=== PATIENT | male | born 1990 | race Caucasian/White ===

== ENCOUNTER 2022-07-15 11:46 | Emergency (ER) | payer OTHER ==
[~2022-07-15] VITALS: Ht 165.1 cm; Wt 78.4 kg
[2022-07-15 13:15] VITALS: BP 135/99
[2022-07-15] MEDS ORDERED: TRAM-297 PO (13:57)
[2022-07-15] MEDS ORDERED: KETOROLAC TROMETH 60MG/2ML VIAL IM ONE (14:00)
== END 2022-07-15 14:00 | disposition home or self-care (01) ==
LOC: ER 11:46
DX: S83.91XA Sprain of unspecified site of right knee, initial encounter (principal); X50.1XXA Overexertion from prolonged static or awkward postures, initial encounter; Y93.89 Activity, other specified; Y92.89 Other specified places as the place of occurrence of the external cause; Y99.8 Other external cause status
CPT/HCPCS: 73562; 96372; 99283; J1885

== ENCOUNTER 2022-10-21 14:00 | Emergency (ER) | payer OTHER ==
[~2022-10-21] VITALS: Ht 165.1 cm; Wt 79.3 kg
[~2022-10-21 14:00] MED LIST: ALBU108A5 IN; AZITTAB PO; MONT-8 PO; PROM1SOL4 PO; TRAM-297 PO
[2022-10-21 14:45] VITALS: BP 136/111
[2022-10-21] MEDS ORDERED: LIDOCAINE 1% HCL (LOCAL ANESTH.) INJ 20ML MDV IJ ONE (15:00)
== END 2022-10-21 15:17 | disposition home or self-care (01) ==
LOC: ER 14:00
DX: S61.011A Laceration without foreign body of right thumb without damage to nail, initial encounter (principal); Z79.2 Long term (current) use of antibiotics; Z79.899 Other long term (current) drug therapy; W26.8XXA Contact with other sharp object(s), not elsewhere classified, initial encounter; Y93.89 Activity, other specified; Y92.89 Other specified places as the place of occurrence of the external cause; Y99.8 Other external cause status
CPT/HCPCS: 12002; 99282; J2001

== ENCOUNTER 2022-11-08 20:24 | Emergency (ER) | payer OTHER ==
[~2022-11-08] VITALS: Ht 165.1 cm; Wt 80.9 kg
[2022-11-08 21:50] LABS: Basophils # (auto) 0 10 ^3/uL (0-0.2); Basophils % (auto) 0.4 % (0.0-2.0); Eosinophils # (auto) 0.7 10 ^3/uL (0-0.8); Hematocrit 43.6 % (41.0-53.0); Hemoglobin 15.1 g/dL (13.5-17.5); Lymphocytes # (auto) 2.4 10 ^3/uL (0.4-5.4); Mean Corpuscular Hemoglobin 32.4 pg (28.0-32.0); Mean Corpuscular Hgb Conc. 34.7 g/dL (32.0-36.0); Mean Corpuscular Volume 93.5 fL (80.0-100.0); Monocytes # (auto) 0.7 10 ^3/uL (0-1.3); Monocytes % (auto) 6.9 % (0.0-12.0); Neutrophils # (auto) 6.2 10 ^3/uL (1.6-8.6); Neutrophils % (auto) 61.7 % (37.0-80.0); Nucleated Red Blood Cells % 0.2 %; Red Blood Cells 4.67 10^6/uL (4.5-5.90); Red Cell Distribution Width 12.6 % (11.8-14.3)
[2022-11-08 22:04] LABS: Albumin 3.6 g/dL (3.4-5.0); BUN/Creatinine Ratio 14.6; Calcium 8.9 mg/dL (8.5-10.1); Potassium 3.7 mmol/L (3.5-5.1)
[2022-11-08 22:07] LABS: Bilirubin, Total 0.4 mg/dL (0.2-1.0); Total Protein 7.1 g/dL (6.4-8.2)
[2022-11-08 22:20] LABS: INR 0.87 (0.9-1.15); Partial Thromboplastin Time 28.4 sec (24.6-33.4)
[2022-11-09] MEDS ORDERED: OXYC-963 PO (01:29)
[2022-11-09] MEDS ORDERED: DIA5T PO (01:29)
[2022-11-09] MEDS ORDERED: DexAMETHasone SOD PHOS 10MG/1ML VIAL INJ IM ONE (01:30)
[2022-11-09 01:55] VITALS: BP 121/74
[2022-11-10] MEDS ORDERED: DIAZ5TAB PO (07:18)
[2022-11-10] MEDS ORDERED: HYDR-4798 PO (07:22)
== END 2022-11-09 01:55 | disposition home or self-care (01) ==
LOC: ER 20:24
DX: S86.911A Strain of unspecified muscle(s) and tendon(s) at lower leg level, right leg, initial encounter (principal); Z86.718 Personal history of other venous thrombosis and embolism; Z79.2 Long term (current) use of antibiotics; Z79.899 Other long term (current) drug therapy; X58.XXXA Exposure to other specified factors, initial encounter; Y93.89 Activity, other specified; Y92.89 Other specified places as the place of occurrence of the external cause; Y99.8 Other external cause status
CPT/HCPCS: 36415; 80053; 85025; 85379; 85610; 85730; 93971; 96372; 99284; J1100

== ENCOUNTER 2022-11-23 20:32 | Inpatient (IN) | payer OTHER ==
[~2022-11-23] VITALS: Ht 165.1 cm; Wt 86.1 kg
[~2022-11-23 20:32] MED LIST changes: +DIA5T PO; +DIAZ5TAB PO; +HYDR-4798 PO; +OXYC-963 PO
[2022-11-23] MEDS ORDERED: HYDROcodone-ACET 10/325MG TAB PO ONE (21:45)
[2022-11-23 22:02] LABS: Basophils # (auto) 0.1 10 ^3/uL (0-0.2); Basophils % (auto) 0.5 % (0.0-2.0); Eosinophils # (auto) 0.6 10 ^3/uL (0-0.8); Hematocrit 41.9 % (41.0-53.0); Hemoglobin 14.8 g/dL (13.5-17.5); Lymphocytes # (auto) 2.5 10 ^3/uL (0.4-5.4); Lymphocytes % (auto) 22.9 % (10.0-50.0); Mean Corpuscular Hemoglobin 32.7 pg (28.0-32.0); Mean Corpuscular Hgb Conc. 35.4 g/dL (32.0-36.0); Mean Corpuscular Volume 92.3 fL (80.0-100.0); Monocytes # (auto) 0.7 10 ^3/uL (0-1.3); Monocytes % (auto) 6.6 % (0.0-12.0); Neutrophils # (auto) 7.2 10 ^3/uL (1.6-8.6); Nucleated Red Blood Cells % 0.2 %; Red Blood Cells 4.54 10^6/uL (4.5-5.90); White Blood Cell 11.1 10^3/uL (4.4-10.8)
[2022-11-23 22:19] LABS: Albumin 3.7 g/dL (3.4-5.0); Calcium 8.7 mg/dL (8.5-10.1); Potassium 3.4 mmol/L (3.5-5.1)
[2022-11-23 22:22] LABS: BUN/Creatinine Ratio 11.8; Bilirubin, Total 0.3 mg/dL (0.2-1.0); Total Protein 7.4 g/dL (6.4-8.2)
[2022-11-23 23:16] LABS: Urine Bacteria NONE SEEN /hpf (None Seen); Urine Blood 2+ /uL (Negative); Urine Specific Gravity 1.006 (1.001-1.035); Urine WBC <1 /hpf (0 - 3)
[2022-11-24] MEDS ORDERED: DOCUSATE SOD 100 MG CAP PO PRN ×2 (01:00→10:45)
[2022-11-24] MEDS ORDERED: ACETAMINOPHEN 325 MG TAB PO PRN (01:00)
[2022-11-24] MEDS ORDERED: ONDANSETRON HCL 4 MG/2 ML VIAL IV PRN (01:00)
[2022-11-24] MEDS ORDERED: MORPHINE SULFATE INJ 2 MG/ml SYRG IV PRN (01:00)
[2022-11-24] MEDS ORDERED: HYDROcodone-ACET 5/325MG TAB PO PRN (01:00)
[2022-11-24] MEDS ORDERED: NITROGLYCERIN 0.4 MG SL TAB SL PRN (01:00)
[2022-11-24] MEDS: MORPHINE SULFATE INJ 2 MG/ml SYRG IV PRN ×2 (01:15→05:23)
[2022-11-24] MEDS ORDERED: KETOROLAC TROMETH 30 MG/ML 1ML VIAL IV ONE (01:15)
[2022-11-24 04:10] VITALS: BP 119/87
[2022-11-24 05:00] VITALS: BP 119/87
[2022-11-24] MEDS: SODIUM CHLOR 0.9% PF (SALINE LOCK) 10ML VIAL/SYR IV SCH ×3 (06:26→21:10)
[2022-11-24] MEDS ORDERED: KETOROLAC TROMETH 30 MG/ML 1ML VIAL IV PRN (06:45)
[2022-11-24] MEDS ORDERED: HYDROcodone-ACET 10/325MG TAB PO PRN (06:45)
[2022-11-24] MEDS ORDERED: POTASSIUM CHL 20 Meq TABLET PO ONE (07:45)
[2022-11-24 08:34] LABS: Basophils # (auto) 0.1 10 ^3/uL (0-0.2); Basophils % (auto) 0.6 % (0.0-2.0); Eosinophils # (auto) 0.6 10 ^3/uL (0-0.8); Eosinophils % (auto) 6.6 % (0.0-7.0); Hematocrit 43.9 % (41.0-53.0); Hemoglobin 15.2 g/dL (13.5-17.5); Lymphocytes # (auto) 2.8 10 ^3/uL (0.4-5.4); Lymphocytes % (auto) 28.4 % (10.0-50.0); Mean Corpuscular Hemoglobin 32.4 pg (28.0-32.0); Mean Corpuscular Hgb Conc. 34.6 g/dL (32.0-36.0); Mean Corpuscular Volume 93.4 fL (80.0-100.0); Monocytes # (auto) 0.6 10 ^3/uL (0-1.3); Monocytes % (auto) 6.2 % (0.0-12.0); Neutrophils # (auto) 5.7 10 ^3/uL (1.6-8.6); Neutrophils % (auto) 58.2 % (37.0-80.0); Red Cell Distribution Width 12.9 % (11.8-14.3); White Blood Cell 9.8 10^3/uL (4.4-10.8)
[2022-11-24 09:00] VITALS: BP 126/86
[2022-11-24] MEDS: ENOXAPARIN SOD 40 MG/0.4 ML SYRINGE SC SCH (09:49)
[2022-11-24] MEDS ORDERED: GABAPENTIN 300 MG CAP PO SCH (10:00)
[2022-11-24] MEDS ORDERED: DOCUSATE SOD 100 MG CAP PO ONE (11:00)
[2022-11-24 11:03] LABS: Albumin 3.7 g/dL (3.4-5.0); Calcium 9.2 mg/dL (8.5-10.1); Potassium 4.4 mmol/L (3.5-5.1)
[2022-11-24 11:07] LABS: Bilirubin, Total 0.5 mg/dL (0.2-1.0); Total Protein 7.8 g/dL (6.4-8.2)
[2022-11-24] MEDS: HYDROmorphone HCL 2 MG/ML VL/or syr IV PRN ×3 (12:30→21:09)
[2022-11-24 12:54] VITALS: BP 127/88
[2022-11-24] MEDS: HYDROcodone-ACET 10/325MG TAB PO PRN ×2 (15:30→22:33)
[2022-11-24 16:49] VITALS: BP 131/97
[2022-11-24] MEDS: GABAPENTIN 300 MG CAP PO SCH (21:08)
[2022-11-24] MEDS: DOCUSATE SOD 100 MG CAP PO SCH (21:08)
[2022-11-24 22:00] VITALS: BP 134/91
[2022-11-25] MEDS: HYDROmorphone HCL 2 MG/ML VL/or syr IV PRN ×5 (00:55→21:18)
[2022-11-25 05:00] VITALS: BP 110/77
[2022-11-25 05:17] LABS: Basophils # (auto) 0 10 ^3/uL (0-0.2); Basophils % (auto) 0.4 % (0.0-2.0); Eosinophils % (auto) 12.6 % (0.0-7.0); Hematocrit 39.8 % (41.0-53.0); Hemoglobin 14.1 g/dL (13.5-17.5); Lymphocytes # (auto) 2.3 10 ^3/uL (0.4-5.4); Lymphocytes % (auto) 27.7 % (10.0-50.0); Mean Corpuscular Hgb Conc. 35.4 g/dL (32.0-36.0); Mean Corpuscular Volume 93.3 fL (80.0-100.0); Monocytes # (auto) 0.6 10 ^3/uL (0-1.3); Monocytes % (auto) 6.6 % (0.0-12.0); Neutrophils # (auto) 4.4 10 ^3/uL (1.6-8.6); Neutrophils % (auto) 52.7 % (37.0-80.0); Nucleated Red Blood Cells % 0.2 %; Red Blood Cells 4.27 10^6/uL (4.5-5.90); Red Cell Distribution Width 12.8 % (11.8-14.3); White Blood Cell 8.3 10^3/uL (4.4-10.8)
[2022-11-25 05:34] LABS: Albumin 3.3 g/dL (3.4-5.0); Calcium 8.8 mg/dL (8.5-10.1); Potassium 4.2 mmol/L (3.5-5.1)
[2022-11-25 05:39] LABS: BUN/Creatinine Ratio 16.2; Bilirubin, Total 0.3 mg/dL (0.2-1.0); Total Protein 6.3 g/dL (6.4-8.2)
[2022-11-25] MEDS: SODIUM CHLOR 0.9% PF (SALINE LOCK) 10ML VIAL/SYR IV SCH ×3 (05:52→21:17)
[2022-11-25] MEDS: HYDROcodone-ACET 10/325MG TAB PO PRN ×2 (06:58→13:03)
[2022-11-25 08:30] VITALS: BP 120/83
[2022-11-25 09:00] VITALS: BP 120/83
[2022-11-25] MEDS: DOCUSATE SOD 100 MG CAP PO SCH ×2 (09:59→21:17)
[2022-11-25] MEDS: GABAPENTIN 300 MG CAP PO SCH ×2 (09:59→21:16)
[2022-11-25] MEDS: ENOXAPARIN SOD 40 MG/0.4 ML SYRINGE SC SCH (10:00)
[2022-11-25 13:00] VITALS: BP 118/84
[2022-11-25] MEDS ORDERED: ZOLPIDEM TARTRATE 5 MG TAB PO PRN (15:30)
[2022-11-25 17:00] VITALS: BP 130/89
[2022-11-25] MEDS: OXYCODONE W/ ACETAMINOPHEN 5/325MG TABLET PO PRN (18:07)
[2022-11-25 22:00] VITALS: BP 139/98
[2022-11-26] MEDS: OXYCODONE W/ ACETAMINOPHEN 5/325MG TABLET PO PRN ×3 (00:10→16:15)
[2022-11-26 05:00] VITALS: BP 126/75
[2022-11-26] MEDS: SODIUM CHLOR 0.9% PF (SALINE LOCK) 10ML VIAL/SYR IV SCH ×3 (05:26→23:06)
[2022-11-26 09:00] VITALS: BP 111/66
[2022-11-26] MEDS: GABAPENTIN 300 MG CAP PO SCH ×2 (09:50→23:06)
[2022-11-26] MEDS: DOCUSATE SOD 100 MG CAP PO SCH ×2 (09:50→23:06)
[2022-11-26] MEDS: ENOXAPARIN SOD 40 MG/0.4 ML SYRINGE SC SCH (09:50)
[2022-11-26] MEDS: HYDROmorphone HCL 2 MG/ML VL/or syr IV PRN ×3 (12:52→23:15)
[2022-11-26 13:00] VITALS: BP 117/89
[2022-11-26] MEDS ORDERED: NAPROXEN 500 MG TAB PO PRN (16:00)
[2022-11-26 17:00] VITALS: BP 139/91
[2022-11-26 22:00] VITALS: BP 131/82
[2022-11-27] MEDS: OXYCODONE W/ ACETAMINOPHEN 5/325MG TABLET PO PRN ×2 (05:35→12:41)
[2022-11-27] MEDS: SODIUM CHLOR 0.9% PF (SALINE LOCK) 10ML VIAL/SYR IV SCH ×2 (05:45→14:00)
[2022-11-27 09:10] VITALS: BP 116/75
[2022-11-27] MEDS: DOCUSATE SOD 100 MG CAP PO SCH (09:42)
[2022-11-27] MEDS: GABAPENTIN 300 MG CAP PO SCH (09:42)
[2022-11-27] MEDS: ENOXAPARIN SOD 40 MG/0.4 ML SYRINGE SC SCH (09:42)
[2022-11-27 13:10] VITALS: BP 136/98
[2022-11-27] MEDS ORDERED: PERCOT PO ×3 (13:11→14:11)
[2022-11-27] MEDS ORDERED: GABA300C10 PO ×3 (13:11→14:11)
[2022-11-27] MEDS ORDERED: DOCU100C10 PO ×3 (13:11→14:11)
== END 2022-11-27 16:08 | disposition home or self-care (01) | DRG 74 ==
LOC: ER 20:32 → OVERFLOW 11-24 01:03 → CENTRAL 11-24 03:18
PROVIDERS: ADMIT Nurse Practitioner Family; ATTEND Internal Medicine
DX: G62.9 Polyneuropathy, unspecified (principal); G89.18 Other acute postprocedural pain; M25.461 Effusion, right knee; D72.829 Elevated white blood cell count, unspecified; E87.6 Hypokalemia; R00.0 Tachycardia, unspecified; R79.89 Other specified abnormal findings of blood chemistry; Z20.822 Contact with and (suspected) exposure to COVID-19
CPT/HCPCS: 36415; 71275; 73706; 73721; 80053; 81001; 83605; 83880; 84484; 85025; 87426; 93005; 93971; 96374; 97110; 97116; 97163; 97530; G0378; J1885; J2405

== ENCOUNTER 2023-06-07 12:26 | Emergency (ER) | payer OTHER ==
[~2023-06-07] VITALS: Ht 165.1 cm; Wt 75.2 kg
[~2023-06-07 12:26] MED LIST changes: +DIAZ-681 PO; -DIAZ5TAB PO; +DOCU-265 PO; +GABA-1250 PO; +PERCOT PO
[2023-06-07 13:43] VITALS: BP 135/92; PULSE 101; RESP 16; TEMP 98.5; O2SAT 95
[2023-06-07] MEDS ORDERED: KETOROLAC TROMETH 60MG/2ML VIAL IM ONE (14:30)
== END 2023-06-07 14:59 | disposition home or self-care (01) ==
LOC: ER 12:26
DX: S86.811A Strain of other muscle(s) and tendon(s) at lower leg level, right leg, initial encounter (principal); S80.01XA Contusion of right knee, initial encounter; Z98.890 Other specified postprocedural states; Z79.1 Long term (current) use of non-steroidal anti-inflammatories (NSAID); Z79.899 Other long term (current) drug therapy; V43.92XA Unspecified car occupant injured in collision with other type car in traffic accident, initial encounter; Y93.89 Activity, other specified; Y92.89 Other specified places as the place of occurrence of the external cause; Y99.8 Other external cause status
CPT/HCPCS: 73562; 73590; 96372; 99284; J1885

== ENCOUNTER 2023-07-17 17:12 | Emergency (ER) | payer OTHER ==
[~2023-07-17] VITALS: Ht 165.1 cm; Wt 80.4 kg
[2023-07-17 17:29] LABS: Basophils # (auto) 0.1 10 ^3/uL (0-0.2); Basophils % (auto) 0.2 % (0.0-2.0); Eosinophils # (auto) 0 10 ^3/uL (0-0.8); Hematocrit 48.3 % (41.0-53.0); Hemoglobin 16.5 g/dL (13.5-17.5); Lymphocytes # (auto) 3.1 10 ^3/uL (0.4-5.4); Lymphocytes % (auto) 13.3 % (10.0-50.0); Mean Corpuscular Hemoglobin 32.2 pg (28.0-32.0); Mean Corpuscular Hgb Conc. 34.2 g/dL (32.0-36.0); Mean Corpuscular Volume 94.1 fL (80.0-100.0); Monocytes # (auto) 1.2 10 ^3/uL (0-1.3); Neutrophils # (auto) 18.9 10 ^3/uL (1.6-8.6); Neutrophils % (auto) 81.5 % (37.0-80.0); Nucleated Red Blood Cells % 0.1 %; Red Blood Cells 5.13 10^6/uL (4.5-5.90); Red Cell Distribution Width 12.4 % (11.8-14.3); White Blood Cell 23.2 10^3/uL (4.4-10.8)
[2023-07-17 17:43] LABS: Alanine Aminotransferase 48 U/L (7-40); Albumin 5.1 g/dL (3.2-4.8); Alkaline Phosphatase 98 U/L (46-116); Anion Gap 11 (5-15); Aspartate Aminotransferase 26 U/L (13-40); BUN/Creatinine Ratio 8.2 (10.0-20.0); Blood Urea Nitrogen 9 mg/dL (9-23); Calcium 10.7 mg/dL (8.7-10.4); Carbon Dioxide 24 mmol/L (20-30); Chloride 106 mmol/L (98-107); Glucose 127 mg/dL (74-106); Potassium 3.8 mmol/L (3.5-5.1); Sodium 141 mmol/L (136-145)
[2023-07-17 17:44] LABS: Bilirubin, Total 0.4 mg/dL (0.2-1.0); Total Protein 8.2 g/dL (5.7-8.2)
[2023-07-17 18:13] LABS: Urine Bacteria NONE SEEN /hpf (None Seen); Urine Blood Negative /uL (Negative); Urine Clarity Clear (Clear); Urine Color Yellow (Yellow); Urine Hyaline Cast FEW /lpf (0 - 2); Urine Mucus FEW (None Seen); Urine Protein, UAD TRACE (Negative); Urine Specific Gravity 1.018 (1.001-1.035); Urine Urobilinogen Normal (Negative); Urine WBC 4 /hpf (0 - 3)
[2023-07-17 18:27] LABS: Amphetamine Screen, Urine Neg (NEGATIVE); Barbiturate Scree,Urine Neg (NEGATIVE); Benzodiazephine Screen, Urine Pos (NEGATIVE); Cannabinoid Screen, Urine Neg (NEGATIVE); Cocaine Screen, Urine Neg (NEGATIVE); Opiate Scree,Urine Neg (NEGATIVE); Phencyclidine Screen, Urine Neg (NEGATIVE)
[2023-07-17] MEDS ORDERED: SODIUM CHLORIDE 0.9% 1,000 ML IV ONE (18:30)
[2023-07-17] MEDS ORDERED: diphenhdrAMINE HCL 50 MG/1 ML VL IV ONE (18:30)
[2023-07-17 21:30] VITALS: BP 149/79; PULSE 97; RESP 22; O2SAT 100
== END 2023-07-17 21:34 | disposition home or self-care (01) ==
LOC: ER 17:12
DX: T78.1XXA Other adverse food reactions, not elsewhere classified, initial encounter (principal); R00.2 Palpitations; R42 Dizziness and giddiness; Z98.890 Other specified postprocedural states; Z87.891 Personal history of nicotine dependence; Z79.1 Long term (current) use of non-steroidal anti-inflammatories (NSAID); Z79.899 Other long term (current) drug therapy; X58.XXXA Exposure to other specified factors, initial encounter
CPT/HCPCS: 36415; 71046; 80053; 80307; 81001; 83880; 84484; 85025; 93005; 96361; 96374; 99285; J1200; J7030

== ENCOUNTER 2023-10-24 04:20 | Emergency (ER) | payer OTHER ==
[~2023-10-24] VITALS: Ht 165.1 cm; Wt 79.5 kg
[2023-10-24] MEDS ORDERED: ACETAMINOPHEN 325 MG TAB PO ONE ×2 (05:13→05:15)
[2023-10-24] MEDS ORDERED: IBUP-1456 PO (05:30)
[2023-10-24] MEDS ORDERED: PRED20TA2 PO (05:30)
[2023-10-24] MEDS ORDERED: cefTRIAXone SOD 1,000 MG VL IM ONE (05:30)
[2023-10-24] MEDS ORDERED: AMOX875T4 PO (05:30)
[2023-10-24] MEDS ORDERED: methylPREDNISolone SOD SUCC 125 MG/2 ML VL IM ONE (05:30)
[2023-10-24 06:51] VITALS: BP 135/80; PULSE 98; RESP 20; TEMP 100.2
[2023-10-24 06:57] VITALS: O2SAT 94
== END 2023-10-24 07:01 | disposition home or self-care (01) ==
LOC: ER 04:20
DX: J03.90 Acute tonsillitis, unspecified (principal); Z79.1 Long term (current) use of non-steroidal anti-inflammatories (NSAID); Z79.2 Long term (current) use of antibiotics; Z79.899 Other long term (current) drug therapy
CPT/HCPCS: 96372; 99284; J0696; J2930

== ENCOUNTER 2023-11-16 09:22 | Emergency (ER) | payer OTHER ==
[~2023-11-16] VITALS: Ht 165.1 cm; Wt 79.7 kg
[~2023-11-16 09:22] MED LIST changes: +AMOX875T4 PO; +IBUP-1456 PO; +PRED20TA2 PO
[2023-11-16] MEDS: ALBUTEROL SULF 2.5 MG/0.5ML(0.5%) NEB SOLN NEB ONE (10:49)
[2023-11-16] MEDS: IPRATROPIUM BROM 0.5 MG/2.5ML INH SOL NEB ONE (10:50)
[2023-11-16 10:51] LABS: Basophils # (auto) 0.1 10 ^3/uL (0-0.2); Basophils % (auto) 0.4 % (0.0-2.0); Eosinophils # (auto) 0.1 10 ^3/uL (0-0.8); Eosinophils % (auto) 0.7 % (0.0-7.0); Hematocrit 42.7 % (41.0-53.0); Hemoglobin 14.8 g/dL (13.5-17.5); Lymphocytes # (auto) 1.2 10 ^3/uL (0.4-5.4); Lymphocytes % (auto) 7.8 % (10.0-50.0); Mean Corpuscular Hemoglobin 32.9 pg (28.0-32.0); Mean Corpuscular Hgb Conc. 34.7 g/dL (32.0-36.0); Mean Corpuscular Volume 94.8 fL (80.0-100.0); Monocytes # (auto) 0.9 10 ^3/uL (0-1.3); Monocytes % (auto) 6.2 % (0.0-12.0); Neutrophils # (auto) 12.7 10 ^3/uL (1.6-8.6); Neutrophils % (auto) 84.9 % (37.0-80.0); Red Cell Distribution Width 12.3 % (11.8-14.3)
[2023-11-16 11:04] LABS: INR 1.02 (0.9-1.15); Prothrombin Time 10.7 sec (9.3-11.8)
[2023-11-16 11:08] LABS: Chloride 104 mmol/L (98-107); Potassium 3.8 mmol/L (3.5-5.1); Sodium 137 mmol/L (136-145)
[2023-11-16 11:09] LABS: Anion Gap 8 (5-15); Calcium 9.1 mg/dL (8.5-10.1); Carbon Dioxide 25 mmol/L (20-30)
[2023-11-16 11:14] LABS: BUN/Creatinine Ratio 11.5 (10.0-20.0); Blood Urea Nitrogen 11 mg/dL (9-23); Glucose 86 mg/dL (74-106)
[2023-11-16] MEDS: SODIUM CHLORIDE 0.9% 2,400 ML IV ONE (12:32)
[2023-11-16 12:39] LABS: Rapid Strep A Screen-Throat Positive
[2023-11-16 12:52] LABS: COVID19 ANTIGEN SOFIA FIA NEGATIVE (NEGATIVE)
[2023-11-16 13:20] LABS: Rapid Influenza A Negative (Negative); Rapid Influenza B Negative (Negative)
[2023-11-16] MEDS ORDERED: METH4PAK PO (13:25)
[2023-11-16] MEDS ORDERED: ACET500T58 PO (13:26)
[2023-11-16] MEDS: DexAMETHasone SOD PHOS 10MG/1ML VIAL INJ IM ONE (14:15)
[2023-11-16] MEDS: PENICILLIN G BENZ 1,200,000 UNITS/2 ML SYRG IM ONE (14:15)
[2023-11-16 14:45] VITALS: BP 127/87; PULSE 100; RESP 16; TEMP 99.3; O2SAT 98
== END 2023-11-16 14:45 | disposition home or self-care (01) ==
LOC: ER 09:22
DX: J02.0 Streptococcal pharyngitis (principal); R07.89 Other chest pain; M54.2 Cervicalgia; Z20.822 Contact with and (suspected) exposure to COVID-19
CPT/HCPCS: 36415; 36600; 70490; 71045; 80048; 82805; 83605; 84484; 85025; 85379; 85610; 87040; 87426; 87804; 87880; 93005; 96360; 96361; 96372; 99285; J0561; J1100; J7030; J7040; J7644

== ENCOUNTER 2025-07-29 12:32 | Emergency (ER) | payer OTHER ==
[~2025-07-29] VITALS: Ht 165.1 cm; Wt 75.6 kg
[~2025-07-29 12:32] MED LIST changes: +ACET500T58 PO; +METH4PAK PO
[2025-07-29] MEDS ORDERED: IBUP-1456 PO (14:15)
[2025-07-29] MEDS ORDERED: CLIN1CAP70 PO (14:15)
--- NOTE | 2025-07-29 14:17 | ED.PDOC ---
Eye-HPI HPI Comments A 35 YEAR OLD MALE PRESENTS TO THE ED WITH COMPLAINT OF TOOTH PAIN. PT STATES HE HAS BEEN HAVING R SIDED TOOTH PAIN FOR THE PAST 2X DAYS. PT STATES HE WENT TO [facility] TODAY AND WAS TOLD TO COME TO THE ED FOR ANTIBIOTICS. PATIENT DENIES FEVER, CHILLS, SHORTNESS OF BREATH, CHEST PAIN, ABDOMINAL PAIN, NAUSEA, VOMITING, HEADACHE, OR OTHER COMPLAINTS. NO OTHER SYMPTOMS OR MODIFYING FACTORS AT THIS TIME. PATIENT IS ALERT, ORIENTED X 4, AND HAS STEADY GAIT. Chief Complaint: Tooth Pain Time Seen by MD: 14:14 Primary Care Provider: [place] Reviewed Notes: Medications, Allergies Allergies: Coded Allergies: No Known Drug Allergy (Verified Allergy, Unknown, 07/15/22) Home Meds Active Scripts Ibuprofen (Ibuprofen) 800 Mg Tab, 1 TAB PO TID, #30 TAB Prov:CASH HURTADO 07/29/25 Clindamycin Hcl (Clindamycin Hcl) 300 Mg Cap, 1 CAP PO TID, #30 CAP Prov:CASH HURTADO 07/29/25 Acetaminophen (Acetaminophen) 500 Mg Tab, 1000 MG PO Q6HP PRN for 5 Days, #40 TAB Prov:KALYANI SPIVEY MD 11/16/23 Methylprednisolone (Medrol Dosepak) 4 Mg Roosevelt, 4 MG PO UD PRN, #21 TAB UAD Prov:KALYANI SPIVEY MD 11/16/23 Ibuprofen (Ibuprofen) 800 Mg Tab, 1 TAB PO TID PRN, #30 TAB 0 Refills Prov:SARAH BURTON 10/24/23 Prednisone (Prednisone) 20 Mg Tab, 20 MG PO BID for 5 Days, #10 TAB 0 Refills Prov:SARAH BURTON 10/24/23 Amoxicillin & Pot Clavulanate (Amoxicillin/Potassium Cla) 875 Mg Tab, 1 TAB PO BID for 7 Days, #14 TAB 0 Refills Prov:SARAH BURTON 10/24/23 Oxycodone W/ Acetaminophen (Percocet 5/325MG) 1 Tab Tb, 1 TAB PO TID PRN for 15 Days, #45 TAB Prov:ENRIKE DIAZ MD 11/27/22 Docusate Sodium (Docusate Sodium) 100 Mg Cap, 100 MG PO BID for 30 Days, #60 CAP 2 Refills Prov:ENRIKE DIAZ MD 11/27/22 Gabapentin (Gabapentin) 300 Mg Cap, 300 MG PO BID for 30 Days, #60 CAP 2 Refills Prov:ENRIKE DIAZ MD 11/27/22 Hydrocodone-Acetaminophen (Hydrocodone Bitartrate/AC 10-325 mg) 1 Tab Tab, 1 TAB PO BID for 7 Days, #14 TAB Prov:HALLEY OLIVEIRA MD 11/10/22 Diazepam (Valium) 5 Mg Tab, 5 MG PO DAILY for 14 Days, #14 TAB Prov:HALLEY OLIVEIRA MD 11/10/22 Oxycodone W/ Acetaminophen (Oxycodone/Acetaminophen 10-300 mg) 1 Tab Tab, 1 TAB PO BID for 7 Days, #14 TAB Prov:HALLEY OLIVEIRA MD 11/09/22 Diazepam (VALIUM TABLET) 5 Mg Tb, 1 TAB PO BID for 7 Days, #14 TAB Prov:HALLEY OLIVEIRA MD 11/09/22 Azithromycin (Zithromax Z-Roosevelt) 250 Mg Tab, 250 MG PO DAILY for 5 Days, #6 TAB Prov:WARREN ROMERO 09/13/22 Montelukast Sodium (MONTELUKAST SODIUM) 10 Mg Tab, 1 TAB PO DAILY, #30 TAB 5 Refills Prov:WARREN ROMERO 09/13/22 Promethazine-Dm (Promethazine Dm 6.25-15 mg/5Ml) 1 Delores Delores, 5 ML PO TID PRN, #240 ML Prov:WARREN ROMERO 09/13/22 Albuterol Sulfate (Albuterol Sulfate Hfa) 108 Mcg/Act Aer, 108 MCG IN QID, #1 AER Prov:WARREN ROMERO 09/13/22 Tramadol Hcl (Ultram) 50 Mg Tab, 50 MG PO TID, #24 TAB Prov:CASH HURTADO 07/15/22 Information Source: Patient Mode of Arrival: Ambulatory Brought in by: SELF Timing: Days Duration: Since onset Quality: Pain, Red Lids: Normal Conjunctiva: Normal Cornea: Normal Pupils: Normal EOM: Normal Fundus: Normal Slit lamp exam: Normal Anterior chamber: Normal Mouth Location: Right, Lower, Tooth/Teeth, Gums Mouth: Right, Lower, Premolar, Molar, Tender, Carious, Normal ENT Ear Exam: Normal Nose: Normal Sinuses: Normal Onset: Spontaneous Throat Exposed to: None History of: None Last Tetanus: UTD Associated signs and symptoms: Tooth Pain Past Medical History PAST MEDICAL HISTORY: Denies Surgical History: Denies all surgeries Family History Family History: Reviewed,noncontributory to illness, Unknown Social History Smoker: Non-Smoker Alcohol: Occasionally Drugs: Denies Drug Use Lives In: Home Constitutional: denies: chills, diaphoresis, fatigue, fever, malaise, sweats, weakness, others EENTM: reports: mouth pain (RIGHT LOWER TOOTH PAIN ), others (TOOTH PAIN); denies: blurred vision, double vision, ear bleeding, ear discharge, ear drainage, ear pain, ear ringing, eye pain, eye redness, hearing loss, mouth swelling, nasal discharge, nose bleeding, nose congestion, nose pain, photophobia, tearing, throat pain, throat swelling, voice changes Respiratory: denies: cough, hemoptysis, orthopnea, SOB at rest, shortness of breath, SOB with excertion, stridor, wheezing, others Cardiovascular: denies: chest pain, dizzy spells, diaphoresis, Dyspnea on exertion, edema, irregular heart beat, left arm pain, lightheadedness, palpitations, PND, syncope, others Gastrointestinal: denies: abdomen distended, abdominal pain, blood streaked bowels, constipated, diarrhea, dysphagia, difficulty swallowing, hematemesis, melena, nausea, poor appetite, poor fluid intake, rectal bleeding, rectal pain, vomiting, others Genitourinary: denies: burning, dysuria, flank pain, frequency, hematuria, incontinence, penile discharge, penile sore, pain, testicle pain, testicle swelling, urgency, others Neurological: denies: dizziness, fainting, headache, left sided numbness, left sided weakness, numbness, paresthesia, pre-existing deficit, right sided numbne ss, right sided weakness, seizure, speech problems, tingling, tremors, weakness, others Musculoskeletal: denies: back pain, gout, joint pain, joint swelling, muscle pain, muscle stiffness, neck pain, others Integumetry: denies: bruises, change in color, change in hair/nails, dryness, laceration, lesions, lumps, rash, wounds, others Allergic/Immunocompromised: denies: Difficulty Healing, Frequent Infections, Hives, Itching, others Hematologic/Lymphatic: denies: anemia, blood clots, easy bleeding, easy bruising, swollen glands, others Endocrine: denies: excessive hunger, excessive sweating, excessive thirst, excessive urination, flushing, intolerance to cold, intolerance to heat, unexplained weight gain, unexplained weight loss, others Psychiatric: denies: anxiety, bipolar disorder, depression, hopeless, panic disorder, schizophrenia, sleepless, suicidal, others All Other Systems: Reviewed and Negative Physical Exam General Appearance: No Apparent Distress, Normal HEENT: Normal ENT Inspection, PERRL/EOMI, Pharynx Normal, TMs Normal, Other (ERYTHEMA AND SWELLING ON RIGHT LOWER GUM AROUND TOOTH, DENTAL INFECTION, MILD RIGHT JAW REGION SWELLING. ) Neck: Full Range of Motion, Non-Tender, Normal, Normal Inspection Respiratory: Chest Non-Tender, Lungs Clear, No Accessory Muscle Use, No Respiratory Distress, Normal Breath Sounds Cardiovascular: No Edema, No JVD, No Murmur, No Gallop, Normal Peripheral Pulses, Regular Rate/Rhythm Breast Exam: Deferred Gastrointestinal: No Organomegaly, Non Tender, No Pulsatile Mass, Normal Bowel Sounds, Soft Genitalia: Deferred Pelvic: Deferred Rectal: Deferred Extremities: No calf tenderness, Normal capillary refill, Normal inspection, Normal range of motion, Non-tender, No pedal edema Musculoskeletal : Apperance: Normal Neurologic: Alert, editing computer publisher [id number] nml as Tested, No Motor Deficits, Normal Affect, Normal Mood, No Sensory Deficits Cerebellar Function: Normal Reflexes: Normal Skin: Dry, Normal Color, Warm Peripheral Pulses: 2+ carotid (R), 2+ carotid (L) Lymphatic: No Adenopathy Was a procedure done? Was a procedure done?: No EENT DIFF Eye: Other Ear: Otitis Externa, Otitis Media, Dental, Pharyngitis Other Differential Diagnosis DENTAL CARIES X-Ray, Labs, Meds, VS Vital Signs Date Time Temp Pulse Resp B/P (MAP) Pulse Ox O2 Delivery O2 Flow Rate FiO2 07/29/25 12:36 98.6 101 18 130/86 97 98.6 Current Medications Medications (Trade) Dose Ordered Sig/Galina Route Start Time Stop Time Status Last Admin Acetaminophen/ Hydrocodone Bitart (Howell 10/325MG Tab) 1 tab ONCE ONCE PO 07/29/25 14:15 07/29/25 14:16 DC 07/29/25 14:35 X-Ray, Labs, Meds, VS Comment COURSE: EXTERNAL MEDICAL RECORDS REVIEWED: [NONE] INDEPENDENT HISTORIANS: [NONE] SOCIAL DETERMINANTS OF HEALTH: [NONE] LABS ORDERED: NONE REVIEWED AND INTERPRETED RESULTS: NONE IMAGING ORDERED: NONE TREATMENTS ORDERED: NORCO 10/325, ROCEPHIN 1 G PROCEDURES PERFORMED: NONE CRITICAL CARE TIME: NONE I HAVE DISCUSSED THE PATIENT WITH THE ATTENDING PHYSICIAN, DR. GRAHAM, HE AGREES WITH THE PATIENT'S PLAN OF CARE AND DISPOSITION. BASED ON HISTORY OF PRESENT ILLNESS, AND PHYSICAL EXAM, PATIENT WILL BE DISCHARGED HOME. DISCUSSED PLAN FOR DISCHARGE HOME WITH RX [CLINDAMYCIN AND MOTRIN ]. MEDICATION WARNINGS GIVEN. SHARED DECISION MAKING: DISCUSSED WITH PATIENT THAT THEIR WORKUP WAS NORMAL. PATIENT INSTRUCTED TO FOLLOW UP WITH PRIMARY CARE PROVIDER IN 1-2 DAYS FOR RE- EVALUATION OF SYMPTOMS. PATIENT VERBALIZES UNDERSTANDING TO RETURN TO ED FOR NEW OR WORSENING SYMPTOMS OR IF FOLLOW UP WITH PCP CANNOT BE OBTAINED. PATIENT FEELS COMFORTABLE GOING HOME AT THIS TIME. ALL QUESTIONS ADDRESSED AT TIME OF DISCHARGE. Time of 1ST Reevaluation: 14:45 Reevaluation 1ST: Improved Patient Education/Counseling: Diagnosis, Treatment, Need For Follow Up Family Education/Counseling: Diagnosis, Treatment, Need For Follow Up Medical Screening: No EMC Exist At This Time SEPSIS Sepsis Screen Date sepsis recognized/suspect: Jul 29, 2025 Time Sepsis recognized/suspect: 1238 Recent Procedure: No On Antibiotic Therapy: No Respiratory Rate >20: No Heart Rate >90: Yes Temp<36 C (96.8 F) or >38.3 C: No SBP <90 or MAP <65 mmHG: No New Acute Mental Status Change: No Is the patient on CPAP, BIPAP,: No Vital Signs Date Time Temp Pulse Resp B/P (MAP) Pulse Ox O2 Delivery O2 Flow Rate FiO2 07/29/25 12:36 98.6 101 18 130/86 97 98.6 Medications Medications Dose Ordered Sig/Galina Route Start Time Stop Time Status Last Admin Dose Admin Acetaminophen/ Hydrocodone Bitart 1 tab ONCE ONCE PO 07/29/25 14:15 07/29/25 14:16 DC 07/29/25 14:35 Departure 1 Departure Time of Disposition: 15:00 Impression: Primary Impression: Dental infection Disposition: 01 HOME / SELF CARE / HOMELESS Condition: Stable Additional Instructions: INSTRUCTIONS: FOLLOW-UP WITH PCP IN 1 TO 2 DAYS. TAKE MEDICATIONS PRESCRIBED. RETURN TO ED FOR ANY NEW OR WORSENING SYMPTOMS. e-Prescriptions Ibuprofen (Ibuprofen) 800 Mg Tab 1 TAB PO TID, #30 TAB Prov: CASH HURTADO 07/29/25 Clindamycin Hcl (Clindamycin Hcl) 300 Mg Cap 1 CAP PO TID, #30 CAP Prov: CASH HURTADO 07/29/25 Discharged With: Self Critical Care Note Critical Care Time?: No Stability Stability form required: No Heart Score Heart Score: Heart Score Response (Comments) Value History N/A 0 EKG N/A 0 Age N/A 0 Risk Factors N/A 0 Troponin N/A 0 Total 0 I personally scribed for CASH HURTADO ([email or web address]) on 07/29/25 at 14:17. Electronically submitted by Isiah Patel ([email or web address]). CASH HURTADO Jul 29, 2025 14:17
[2025-07-29] MEDS: HYDROcodone-ACET 10/325MG TAB PO ONE (14:35)
[2025-07-29] MEDS: cefTRIAXone SOD 1,000 MG VL IM ONE (14:43)
[2025-07-29 14:54] VITALS: BP 136/87; PULSE 98; RESP 18; TEMP 97.9; O2SAT 99
== END 2025-07-29 14:55 | disposition home or self-care (01) ==
LOC: ER 12:32
DX: K04.7 Periapical abscess without sinus (principal); Z79.52 Long term (current) use of systemic steroids; Z79.891 Long term (current) use of opiate analgesic; Z79.899 Other long term (current) drug therapy
CPT/HCPCS: 96372; 99283; J0696